=== PATIENT | female | born 1970 | race Caucasian/White ===

== ENCOUNTER 2023-04-03 10:59 | Emergency (ER) | payer SELFPAY ==
[2023-04-03 11:02] VITALS: BP 146/74; PULSE 60; RESP 18; TEMP 36.8; O2SAT 99; BMI 30.3
--- NOTE | 2023-04-03 11:15 | ED_ITS ---
HPI - Dental/Oral General Chief complaint: Dental/Oral Stated complaint: DENTAL PAIN Time Seen by Provider: 04/03/23 11:07 Source: patient Mode of arrival: walk-in Limitations: no limitations History of Present Illness HPI Narrative: 53-year-old female presents for toothache. She's complaining of pain to the left lower dentition which radiates to her left ear and it's moderate to severe. She tried to get into see a dentist but can't until June. The pain is throbbing and she's had it for almost a week. Related Data Home Medications Medication Instructions Recorded Confirmed amlodipine 10 mg tablet 10 mg PO DAILY 04/03/23 04/03/23 lisinopril 10 mg tablet 10 mg PO DAILY 04/03/23 04/03/23 Previous Rx's Medication Instructions Recorded acetaminophen 300 mg-codeine 30 mg 1 tab PO Q6H PRN pain #20 tabs 04/03/23 tablet ibuprofen 800 mg tablet 800 mg PO Q8H PRN pain #20 tabs 04/03/23 penicillin V potassium 250 mg 250 mg PO QID 10 days #40 tabs 04/03/23 tablet Allergies Allergy/AdvReac Type Severity Reaction Status Date / Time fluticasone [From Flonase] AdvReac Intermediate Verified 04/03/23 11:02 Review of Systems ROS Narrative A ten point review of systems is negative except as noted above. PFSH PFSH Social History Smoking status: Never smoker Exam Narrative Exam Narrative: Nurses note and vital signs reviewed and patient is not hypoxic. General: The patient appears well and in no apparent distress. Patient is resting comfortably on cart. Skin: Warm, dry, no pallor noted. There is no rash noted. Head: Normocephalic, atraumatic Eye: Normal conjunctiva, no drainage Ears, Nose, Mouth, and Throat: oral mucosa is moist. Nares patent. Mouth without vesicles. dental caries noted in the left mandibular 2nd molar. No bleeding or pus present. No facial swelling or erythema and no swelling to the floor of her mouth. Cardiovascular: Regular Rate and Rhythm Respiratory: Patient is in no distress, no accessory muscle use, lungs are clear to auscultation, no wheezing, rales or rhonchi Back: non-tender GI: soft and nontender Musculoskeletal: The patient has no evidence of calf tenderness, no pitting sheyla a, symmetrical pulses noted bilaterally Neurological: A&O, normal speech Psychiatric: Cooperative Constitutional Vital Signs, click to edit/add: Last Vital Signs Temp 98.2 F 04/03/23 11:02 Pulse 60 04/03/23 11:02 Resp 18 04/03/23 11:02 BP 146/74 H 04/03/23 11:02 Pulse Ox 99 04/03/23 11:02 O2 Del Method Room Air 04/03/23 11:02 Course Vital Signs Vital signs: Vital Signs Temperature 98.2 F 04/03/23 11:02 Pulse Rate 60 04/03/23 11:02 Respiratory Rate 18 04/03/23 11:02 Blood Pressure 146/74 H 04/03/23 11:02 Pulse Oximetry 99 04/03/23 11:02 Oxygen Delivery Method Room Air 04/03/23 11:02 Temperature 98.2 F 04/03/23 11:02 Pulse Rate 60 04/03/23 11:02 Respiratory Rate 18 04/03/23 11:02 Blood Pressure 146/74 H 04/03/23 11:02 Pulse Oximetry 99 04/03/23 11:02 Oxygen Delivery Method Room Air 04/03/23 11:02 Discharge Plan Discharge Chief Complaint: Dental/Oral Clinical Impression: Dental caries, Toothache Time of Disposition Decision: 11:12 Condition: Good Mode of Transportation: Private Vehicle Prescriptions / Home Meds: New penicillin V potassium 250 mg tablet 250 mg PO QID 10 Days Qty: 40 0RF ibuprofen 800 mg tablet 800 mg PO Q8H PRN (Reason: pain) Qty: 20 0RF acetaminophen-codeine 300-30 mg tablet 1 tab PO Q6H PRN (Reason: pain) Qty: 20 0RF No Action lisinopril 10 mg tablet 10 mg PO DAILY amlodipine 10 mg tablet 10 mg PO DAILY Instructions: Toothache (ED) Additional Instructions: follow up with dentistry Stand Alone Forms: Portal Instructions
== END 2023-04-03 11:19 | disposition home or self-care (01) ==
PROVIDERS: Emergency Provider Emergency Medicine
DX: K02.9 Dental caries, unspecified (principal); K08.89 Other specified disorders of teeth and supporting structures; Z79.899 Other long term (current) drug therapy
CPT/HCPCS: 99283

== ENCOUNTER 2024-07-28 18:17 | Emergency (ER) | payer SELFPAY ==
[2024-07-28 18:20] VITALS: BP 164/81; PULSE 80; TEMP 36.7; O2SAT 97; BMI 30.4
--- NOTE | 2024-07-28 18:28 | ED_ITS ---
HPI - Dental/Oral General Chief complaint: Dental/Oral Stated complaint: toothache Time Seen by Provider: 07/28/24 18:19 Source: patient Mode of arrival: walk-in History of Present Illness HPI Narrative: Patient is a 54-year-old female who presents to the emergency department for a 1 month history of pain in the teeth. She states she is having more pain when she eats so she came to the ER today. She does not have a dentist. She has not noticed any significant facial swelling, she states the tooth in the left mandible will occasionally swell along the gumline but there is no significant swelling today. No drainage. She does not take blood thinners, no medications taken prior to arrival. Related Data Home Medications ?Medication ?Instructions ?Recorded ?Confirmed amlodipine 10 mg tablet 10 mg PO DAILY 04/03/23 07/28/24 Previous Rx's ?Medication ?Instructions ?Recorded ketorolac 10 mg tablet 10 mg PO TID PRN pain #10 tabs 07/28/24 penicillin V potassium 500 mg 500 mg PO Q8H 10 days #30 tabs 07/28/24 tablet Allergies Allergy/AdvReac Type Severity Reaction Status Date / Time fluticasone (From Flonase) AdvReac Intermediate Verified 04/03/23 11:02 Review of Systems ROS Constitutional Denies: fever or chills Ears, nose, mouth, and throat Denies: throat pain or nasal congestion Cardiovascular Denies: chest pain Respiratory Denies: shortness of breath Gastrointestinal Denies: nausea or vomiting Integumentary/Breast Denies: rash Neurological Denies: headache Hematologic/Lymphatic Denies: easy bruising or easy bleeding PFSH PFSH Social History Smoking status: Never smoker Little interest or pleasure in doing things: not at all Feeling down, depressed, or hopeless: not at all Exam Narrative Exam Narrative: Gen.: Awake, alert, in no distress Head: Normocephalic, atraumatic ENT: Moist mucous membranes, dental caries to tooth #13 and tooth #20 with root exposure. No visible abscess. No trismus or drooling. Clear speech. Airway widely open and patent. No redness or swelling under the tongue Respiratory: No respiratory distress Extremities: Moves extremities equally Psych: Normal mood and affect Neuro: No focal neuro deficit Skin: Warm, dry, intact Constitutional Vital Signs, click to edit/add: Last Vital Signs Temp 98.1 F 07/28/24 18:20 Pulse 80 07/28/24 18:20 Resp 16 07/28/24 18:20 BP 164/81 H 07/28/24 18:20 Pulse Ox 97 07/28/24 18:20 O2 Del Method Room Air 07/28/24 18:20 Course Vital Signs Vital signs: Vital Signs Temperature 98.1 F 07/28/24 18:20 Pulse Rate 80 07/28/24 18:20 Respiratory Rate 16 07/28/24 18:20 Blood Pressure 164/81 H 07/28/24 18:20 Pulse Oximetry 97 07/28/24 18:20 Oxygen Delivery Method Room Air 07/28/24 18:20 Temperature 98.1 F 07/28/24 18:20 Pulse Rate 80 07/28/24 18:20 Respiratory Rate 16 07/28/24 18:20 Blood Pressure 164/81 H 07/28/24 18:20 Pulse Oximetry 97 07/28/24 18:20 Oxygen Delivery Method Room Air 07/28/24 18:20 MDM - Dental/Oral MDM Narrative Medical decision making narrative: Exam is consistent with dental caries, possible secondary infection although at this time there is no evidence of dental abscess. Patient started on clindamycin, Toradol, topical analgesia. She was provided with references for dentist clinics to follow-up with. Return to the ER if symptoms change or worsen SUPERVISED APC VISIT, PHYSICIAN ATTESTATION: Based on the medical record the care appears appropriate. ? Medical Records Attestation: I reviewed the patient's medical records. Discharge Plan Discharge Chief Complaint: Dental/Oral Clinical Impression: Dental caries, Toothache Patient Disposition: Home, Self-Care Time of Disposition Decision: 18:26 Condition: Good Mode of Transportation: Private Vehicle Prescriptions / Home Meds: New ketorolac 10 mg tablet 10 mg PO TID PRN (Reason: pain) Qty: 10 0RF penicillin V potassium 500 mg tablet 500 mg PO Q8H 10 Days Qty: 30 0RF No Action amlodipine 10 mg tablet 10 mg PO DAILY Print Language: Hungarian Instructions: Toothache (ED) Additional Instructions: Follow up with dental Referrals: Physician,Non-Staff, [Physician] - 1 week Discharge Date/Time: 07/28/24 18:56
--- OUTSIDE RECORDS SUMMARY | 2024-07-28 18:34 | XMS_ITS | CCD ---
Author Organization [facility] Care Team Providers Care Faculty Research Physician Name Role Phone AdrianLuis E rodriguezie Unavailable Cheri Brandon Unavailable PERRY ALEMAN Primary Care Unavailable DANISH ROOT Attending Unavailable DANISH ROOT Attending Unavailable DANISH ROOT Referring Unavailable PERRY ALEMAN Primary Care Unavailable NIRAV OLIVA Referring Unavailable PERRY ALEMAN Primary Care Unavailable NIRAV OLIVA Referring Unavailable PERRY ALEMAN Primary Care Unavailable NONE, XXXX Primary Care Physician Unavailab le NO FAMILY, PHYSICIAN Primary Care Provider Unava ilable Nirav Oliva PA-C Attending Provider NO FAMILY, PHYSICIAN Primary Care Unavailable Nirav Oliva Admitting Unavailable Nirav Oliva Attending Unavailable Perry Aleman MD Primary Care Provider [phone] Allergies Allergy Classification Reported Allergen(s) Allergy Type Date of Onset Reaction(s) Facility (2 sources) fluticasone Drug Allergy vomiting [facility] Other (5 sources) fluticasone; Translations: [FLUTICASONE PROPIONATE] Drug Allergy 1 Shortness Of Breath, Hives, GI Disturbance, Vomiting [facility] (1 source) fluticasone Drug Allergy 4 [facility] Repository Medications Current Medications Medication Drug Class(es) Dates Sig (Normalized) Sig (Original) [id number] 200 actuat albuterol 0.09 mg/actuat metered dose inhaler (7 sources) beta2-Adrenergic Agonist Start: 06-29-2023 take 2 puff(s) by mouth every six hours as needed for wheezing VENTOLIN HFA 90 mcg/actuation inhaler Indications: Short of breath on exertion INHALE 2 PUFFS BY MOUTH EVERY 6 HOURS NEEDED FOR WHEEZING 18 g 06/29/2023 Active Start: 10-28-2022 End: 06-29-2023 take 2 puff(s) by inhalation every six hours as needed for wheezing albuterol (PROVENTIL HFA;VENTOLIN HFA) 90 mcg/actuation inhaler Indications: Short of breath on exertion Inhale 2 puffs every 6 (six) hours as needed for wheezing. 18 g 06/29/2023 Active amLODIPine 10 mg oral tablet (8 sources) Dihydropyridine Calcium Channel Cj Start: 10-04-2023 End: 07-15-2024 take 1 tablet by mouth in the morning amLODIPine (NORVASC) 10 mg tablet Indications: Essential hypertension TAKE 1 TABLET BY MOUTH IN THE MORNING 90 tablet 07/15/2024 Active Start: 10-20-2022 End: 09-30-2023 take 1 tablet by mouth in the morning amLODIPine (NORVASC) 10 mg tablet Indications: Essential hypertension TAKE 1 TABLET BY MOUTH IN THE MORNING 90 tablet 2 10/20/2022 09/30/2023 Discontinued (Reorder) Norvasc Active amoxicillin 875 mg oral tablet (1 source) Penicillin-class Antibacterial Start: 03-13-2021 take 1 tablet by mouth every twelve hours Amoxicillin 875 MG 1 tablet Orally every 12 hrs for 7 days Feb, Active ibuprofen 800 mg oral tablet (4 sources) Nonsteroidal Anti-inflammatory Drug Start: 02-26-2023 take 1 tablet by mouth once ibuprofen (MOTRIN) 800 mg tablet Indications: Low back pain with sciatica, sciatica laterality unspecified, unspecified back pain laterality, unspecified chronicity Take 1 tablet (800 mg total) by mouth every 12 (twelve) hours. 60 tablet 02/26/2023 Active lisinopril 10 mg oral tablet (6 sources) Angiotensin Converting Enzyme Inhibitor Start: 12-24-2022 take 1 tablet by mouth in the morning lisinopriL (PRINIVIL,ZESTRIL ) 10 mg tablet Indications: Essential hypertension TAKE 1 TABLET BY MOUTH IN THE MORNING . NEEDS LABS DRAWN FOR FURTHER REFILLS. 90 tablet 12/24/2022 Active take 1 tablet by renetta th every twenty-four hours Lisinopril 10 MG 1 tablet Orally Once a day Active Lisinopril Activ e methylPREDNISolone 4 mg oral tablet (1 source) Corticosteroid Start: 10-16-2022 methylPREDNISolone 4 MG as directed Orally for daily dose take half with breakfast, half with dinner for 6 days Oct, Active naproxen sodium 550 mg oral tablet (1 source) Nonsteroidal Anti-inflammatory Drug Start: 03-13-2021 take 1 tablet by mouth every twelve hours at mealtime as needed Naproxen Sodium 550 MG 1 tablet with food or milk as needed Orally every 12 hrs for 7 days Feb, Active Problems Active Problems Problem Classification Problem Date Documented Da te Episodic/Chronic Asthma (8 sources) Asthma without status asthmaticus; Translations: [Unspecified asthma, uncomplicated] Onset: 1 12-16-2021 Chronic Cardiac dysrhythmias (4 sources) Paroxysmal atrial fibrillation; Translations: [Paroxysmal atrial fibrillation] Onset: 2 02-24-2022 Chronic Disorders of lipid metabolism (4 sources) Hyperlipidemia; Translations: [Hyperlipidemia, unspecified] 02-01-2017 Chronic Esophageal disorders (4 sources) Laryngopharyngeal reflux; Translations: [Gastro-esophageal reflux disease without esophagitis] Onset: 2 12-16-2021 Chronic Essential hypertension (10 sources) Essential hypertension; Translations: [Essential (primary) hypertension] Onset: 6 Resolved: 1 09-30-2023 Chronic Headache; including migraine (4 sources) Chronic intractable migraine without aura; Translations: [Chronic migraine without aura, intractable, without status migrainosus] Onset: 1 11-10-2016 Chronic Other connective tissue disease (1 source) Enthesopathy, unspecified Episodic Other connective tissue disease (1 source) Pain in right hand; Translations: [Pain in right hand] Onset: 4 Episodic Other connective tissue disease (1 source) Hand pain Onset: 4 Episodic Other gastrointestinal disorders (4 sources) Chronic idiopathic constipation; Translations: [Chronic idiopathic constipation] Onset: 7 11-10-2016 Chronic Other injuries and conditions due to external causes (1 source) Other injury of unspecified body region, initial encounter; Translations: [Other injury of unspecified body region, initial encounter] Onset: 4 Episodic Other nutritional; endocrine; and metabolic disorders (4 sources) Obesity; Translations: [Obesity, unspecified] Onset: 1 12-16-2021 Chronic Other upper respiratory disease (4 sources) Chronic rhinitis; Translations: [Chronic rhinitis] Onset: 2 12-16-2021 Chronic Other upper respiratory disease (4 sources) Allergic rhinitis due to pollen; Translations: [Allergic rhinitis due to pollen] Onset: 2 12-16-2021 Chronic Residual codes; unclassified (1 source) Pain, unspecified; Translations: [Pain, unspecified] Onset: 4 Episodic Sprains and strains (3 sources) Sprain of unspecified part of right wrist and hand, initial encounter; Translations: [Unspecified sprain of right thumb, initial encounter] Onset: 4 Episodic Superficial injury; contusion (1 source) Contusion of right hand, initial encounter; Translations: [Contusion of right hand, initial encounter] Onset: 4 Episodic Unclassified (1 source) Hand Injury Onset: 4 Past or Other Problems Problem Classification Problem Date Documented Da te Episodic/Chronic Cardiac dysrhythmias (4 sources) Palpitations; Translations: [Palpitations] Onset: 10-13-2017 10-13-2017 Episodic Disorders of teeth and jaw (1 source) Periapical abscess without sinus; Translations: [Tooth infection K04.7] Onset: 03-13-2021 Resolved: 03-13-2021 Episodic Mood disorders (4 sources) Mood disorders Onset: 12-15-2021 12-15-2021 Nonspecific chest pain (4 sources) Chest pain; Translations: [Chest pain, unspecified] Onset: 03-24-2016 11-10-2016 Episodic Other circulatory disease (1 source) Elevated blood-pressure reading, without diagnosis of hypertension; Translations: [Elevated blood pressure reading R03.0] Onset: 03-13-2021 Resolved: 03-13-2021 Episodic Other connective tissue disease (4 sources) Pain in lower limb; Translations: [Pain in right leg] Onset: 10-17-2019 10-17-2019 Episodic Other lower respiratory disease (6 sources) Dyspnea on exertion; Translations: [Shortness of breath] Onset: 10-17-2019 10-17-2019 Episodic Spondylosis; intervertebral disc disorders; other back problems (5 sources) Pain in thoracic spine; Translations: [Low back pain] Onset: 12-26-2010 Resolved: 03-13-2021 Episodic Unclassified (4 sources) Onset: 02-19-2020 02-19-2020 Results Test Name Value Interpretation Reference Range Facility Magnetic resonance imaging r eportOrdered By: Herbie Andrade on 03-31-2024 Study report [facility] Main [address] [address] MRI Report Signed Patient: Samy Woodruff MR#: [id number] : 1970 Acct:[id number] Age/Sex: 54 / F ADM Date: 4 Loc: MR Room: Type: [facility] Attending Dr: Nirav Oliva PA-C Copies to: NON STAFF Nirav Oliva PA-C~ Ordering Provider: NON STAFF Date of Service: 03/31/24 MR/MR hand RT wo con: 563.91XA S63.601A S60.221A M79.641 ([id number]) XR/XR pre/post mri xray: 563.91XA S63.601A S60.221A M79.641 MR hand RT wo con, XR pre/post mri xray 03/31/2024 11:14 AM SIGNS AND SYMPTOMS: Pain in right first metacarpal after injury, ^563.91XA S63.601A S60.221A M79.641 PROTOCOL: Multiplanar multisequence MR images of the right hand were obtained without IV contrast. Frontal and lateral radiographs of the right hand were obtained. COMPARISON: None. FINDINGS: Radiographs of the right hand: There is no evidence of fracture or dislocation. The joint spaces are preserved. No significant soft tissue swelling. MRI right hand: Alignment: Normal. Fluid: Carpus effusion: No joint effusion. Distal radioulnar joint effusion: Preserved. Intrinsic ligaments: Scapholunate: Intact. Lunotriquetral: Intact. Ulnar side: Triangular fibrocartilage: Normal. Lunate facet: Intact Hamate-lunate: Intact. Extensor compartment: I: Normal. II: Normal. III: Normal. IV: Normal. V: Normal. : Normal. Flexor compartment: Carpal tunnel: Median nerve: Normal. Flexor retinaculum: Intact. Flexor tendons: Intact. Guyon canal: Normal. Articular: Thumb carpometacarpal joint: There is edema surrounding the ulnar aspect of the first carpometacarpal joint. Findings suggest disruption of the intermetacarpalligament along the ulnar aspect of the base of the first metacarpal. There is accompanying edema on both sides of the joint space without obvious avulsion fracture. There is also increased signal intensity along the volar aspect in the expected location of the anterior oblique ligament suggesting disruption. Scaphotrapeziotrapezoidal joint: Intact. Pisiform-triquetral joint: Intact. Bones (other than subarticular marrow): Normal. Muscles: Normal. Vessels: Normal. MR/MR hand RT wo con IMPRESSION: There is edema surrounding the ulnar aspect of the first carpometacarpal joint. There is accompanying edema on both sides of the joint space without obvious avulsion fracture. Findings suggest disruption of the intermetacarpal ligament along the ulnar aspect of the base of the first metacarpal. There is also increased signal intensity along the volar aspect in the expected location of the anterior oblique ligament suggesting disruption. Impression dictated by: Herbie Andrade M.D.03/31/2024 4:10 PM Dictation Location: [place] [address] Transcribed By: [facility] 03/31/24 1610 Dictated By: Herbie Andrade II, MD 03/31/24 1551 Signed By: 03/31/24 1610 [facility] Work Phone: XR pre/post mri xrayon 03-31 XR pre/post mri xray [facility] [address] MRI Report Signed Patient: Samy Woodruff MR#: [id number] 19 : 1970 Acct:[id number] Age/Sex: 54 / F ADM Date: 03/31/24 Loc: Room: Type: [facility] Attending Dr: Nirav Oliva PA-C Copies to: NON STAFF Nirav Oliva PA-C Ordering Provider: NON STAFF Date of Service: 03/31/24 MR/MR hand RT wo con: 563.91XA S63.601A S60.221A M79.641 ([id number]) XR/XR pre/post mri xray: 563.91XA S63.601A S60.221A M79.641 MR hand RT wo con, XR pre/post mri xray 03/31/2024 11:14 AM SIGNS AND SYMPTOMS: Pain in right first metacarpal after injury, 563.91XA S63.601A S60.221A M79.641 PROTOCOL: Multiplanar multisequence MR images of the right hand were obtained without IV contrast. Frontal and lateral radiographs of the right hand were obtained. COMPARISON: None. FINDINGS: Radiographs of the right hand: There is no evidence of fracture or dislocation. The joint spaces are preserved. No significant soft tissue swelling. MRI right hand: Alignment: Normal. Fluid: Carpus effusion: No joint effusion. Distal radioulnar joint effusion: Preserved. Intrinsic ligaments: Scapholunate: Intact. Lunotriquetral: Intact. Ulnar side: Triangular fibrocartilage: Normal. Lunate facet: Intact Hamate-lunate: Intact. Extensor compartment: I: Normal. II: Normal. III: Normal. IV: Normal. V: Normal. : Normal. Flexor compartment: Carpal tunnel: Median nerve: Normal. Flexor retinaculum: Intact. Flexor tendons: Intact. Guyon canal: Normal. Articular: Thumb carpometacarpal joint: There is edema surrounding the ulnar aspect of the first carpometacarpal joint. Findings suggest disruption of the intermetacarpal ligament along the ulnar aspect of the base of the first metacarpal. There is accompanying edema on both sides of the joint space without obvious avulsion fracture. There is also increased signal intensity along the volar aspect in the expected location of the anterior oblique ligament suggesting disruption. Scaphotrapeziotrapezoidal joint: Intact. Pisiform-triquetral joint: Intact. Bones (other than subarticular marrow): Normal. Muscles: Normal. Vessels: Normal. MR/MR hand RT wo con IMPRESSION: There is edema surrounding the ulnar aspect of the first carpometacarpal joint. There is accompanying edema on both sides of the joint space without obvious avulsion fracture. Findings suggest disruption of the intermetacarpal ligament along the ulnar aspect of the base of the first metacarpal. There is also increased signal intensity along the volar aspect in the expected location of the anterior oblique ligament suggesting disruption. Impression dictated by: Herbie Andrade M.D.03/31/2024 4:10 PM Dictation Location: [place] [address] Transcribed By: [facility] 03/31/24 1610 Dictated By: Herbie Andrade II, MD 03/31/24 1551 Signed By: 03/31/24 1610 Normal [facility] XR HAND RT MIN 3 VWSon 02-01 XR HAND RT MIN 3 VWS XR HAND RT MIN 3 VWS CLINICAL INFORMATION: Sprain; Pain TECHNIQUE: Right Hand radiographs performed. Three images acquired. COMPARISON: No relevant prior studies available. FINDINGS: Joint space and bony alignment of the right hand is intact without evidence of acute fracture or dislocation. Carpal rows and wrist alignment is maintained. No radiopaque foreign body. IMPRESSION: * No acute abnormality. Finalized by Ladonna Tristan MD on 02/02/2024 9:42 AM Normal [facility] XR HAND RT MIN 3 VWSon 12-12 XR HAND RT MIN 3 VWS XR HAND RT MIN 3 VWS XR HAND RT MIN 3 VWS HISTORY: Thumb pain, trauma COMPARISON: None. FINDINGS: No acute fracture. Degenerative changes of the first CMC joint. Soft tissues grossly unremarkable. IMPRESSION: * No acute osseous abnormality. Approved by Resident Juan Marcano DO on 12/13/2023 4:45 AM Trev Muñoz MD have personally reviewed the image(s) and agree with and/or edited the report Finalized by Trev Mendez MD on 12/13/2023 4:49 AM Normal [facility] XR ankle RT min 3V*on 2020 XR ankle RT min 3V* [facility] [place] [address] [place], [place] [id number] XRay Report Signed Patient: Samy Woodruff MR#: [id number] : 1970 Acct:[id number] Age/Sex: 50 / F ADM Date: 11/18/20 Loc: XDUCLY Room: Type: [facility] Attending Dr: Kisha COSTA Ordering Provider: KISHA COOPER Date of Service: 11/18/20 XR/XR ankle RT min 3V*: RIGHT ANKLE PAIN Copies to: KISHA COOPER Right ankle 11/18/2020. CLINICAL DATA: Right ankle pain after twisting injury. FINDINGS: 3 views of the right ankle were obtained. No acute fracture or dislocation is identified. No other bony abnormality is seen. Mild lateral soft tissue swelling is noted. XR/XR ankle RT min 3V* IMPRESSION: No acute bony abnormality. Impression dictated by: Binh Anderson Jr., M.D.11/18/2020 3:57 PM Dictation Location: [place] [address] Transcribed By: [facility] 11/18/20 1557 Dictated By: Binh Anderson Jr, MD 11/18/20 1554 Signed By: 11/18/20 1557 [facility] Vital Signs Date Time Vital Sign Value Performing Clinician Facility 10-16-2022 15:25-0400 Body height 162.56 cm Cheri Brandon Other [facility] Other 10-16-2022 15:25-0400 Body mass index (BMI) [Ratio] 30.28 kg/m2 Cheri Brandon Other [facility] Other 10-16-2022 15:25-0400 Body temperature 98.9 [degF] Cheri Brandon Other [facility] Other 10-16-2022 15:25-0400 Body weight 80.02 kg Cheri Brandon Other [facility] Other 10-16-2022 15:25-0400 Diastolic blood pressure 70 mm[Hg] Cheri Brandon Other [facility] Other 10-16-2022 15:25-0400 Respiratory rate 16 /min Cheri Brandon Other [facility] Other 10-16-2022 15:25-0400 SaO2% (BldA) [Mass fraction] 97 % Cheri Brandon Other [facility] Other 10-16-2022 15:25-0400 Systolic blood pressure 134 mm[Hg] Cheri Brandon Other [facility] Other 03-13-2021 12:00-0400 Body height 162.56 cm Kisha Harkinsault Other [facility] Other 03-13-2021 12:00-0400 Body mass index (BMI) [Ratio] 30.38 kg/m2 Kisha Adrian Other [facility] Other 03-13-2021 12:00-0400 Body temperature 98 [degF] Kisha Adrian Other [facility] Other 03-13-2021 12:00-0400 Body weight 80.29 kg Kisha Adrian Other [facility] Other 03-13-2021 12:00-0400 Diastolic blood pressure 81 mm[Hg] Kisha Adrian Other [facility] Other 03-13-2021 12:00-0400 Respiratory rate 16 /min Kisha Adrian Other [facility] Other 03-13-2021 12:00-0400 SaO2% (BldA) [Mass fraction] 100 % Kisha Cooper Other [facility] Other 03-13-2021 12:00-0400 Systolic blood pressure 151 mm[Hg] Kisha Cooper Other [facility] Other Encounters Encounter Date Encounter Type Care Provider Facility Start: 07-14-2024 End: 07-15-2024 Refill Perry Aleman MD Work Phone: [facility] Comment on above: Essential hypertensi on Start: 03-31-2024 End: 03-31-2024 Patient encounter procedure PHYSICIAN NO [facility] [place] Work Phone: Start: 03-31-2024 End: 03-31-2024 ambulatory PHYSICIAN [facility] Work Phone: Start: 02-24-2024 End: 03-04-2024 Pre-admission assessment NIRAV OLIVA [facility] Start: 02-02-2024 End: 02-06-2024 ambulatory NIRAV OLIVA [facility] Start: 01-11-2024 ambulatory NIRAV OLIVA [facility] Start: 12-13-2023 End: 12-14-2023 Emergency department patient visit DANISH SALAZARSTROM [facility] Start: 09-30-2023 End: 10-04-2023 Refill Hardik Flowers CMA [facility] Comment on above: Essential hypertensi on Start: 06-29-2023 Refill Yojana Mitchell [employer] Work Phone: [facility] Comment on above: Short of breath on e xertion Start: 06-29-2023 Refill Jenni Nicole CNA [facility] Comment on above: Short of breath on e xertion Start: 10-16-2022 End: 10-16-2022 ambulatory Cheri Brandon Other [facility] Other Start: 10-16-2022 Office outpatient vi sit 15 minutes Cheri Brandon [facility] Start: 03-13-2021 Office outpatient vi sit 15 minutes Kisha Cooper [facility] Procedures Date Procedure Procedure Detail Performing Clinician Start: 03-31-2024 MRI of right hand PHYSI DREW NO FAMILY Start: 03-31-2024 XR pre/post mri xray PH YSICIAN NO FAMILY Start: 12-15-2021 Adult depression scr eening assessment Jenni Nicole WEB DEVELOPMENT DIRECTOR Start: 09-10-2017 Mammography Jenni pfeiffer WEB DEVELOPMENT DIRECTOR Start: 04-06-2017 Microscopic observat ion [Identifier] in Cervix by Cyto stain Jenni Nicole WEB DEVELOPMENT DIRECTOR Plan of Treatment Date Care Activity Detail Author Start: 07-01-2032 DTaP,Tdap and Td Vaccines (2 - Td or Tdap) DTaP,Tdap and Td Vaccines (2 - Td or Tdap) [facility] Start: 12-12-2024 Adult BMI Screening Adult BMI Screening [facility] Start: 12-12-2024 Tobacco Screening Tobacco Screening [facility] Start: 01-16-2024 Influenza vaccination Influenza Vaccine [facility] Start: 12-12-2023 Adult BMI Screening Adult BMI Screening [facility] Start: 12-12-2023 Tobacco Screening Tobacco Screening [facility] Start: 01-15-2023 Influenza vaccination Influenza Vaccine [facility] Start: 12-15-2022 Depression Screening Depression Screening [facility] Start: 04-06-2020 Screening for malignant neoplasm of cervix Pap Smear [facility] Start: 2020 Administration of varicella zoster vaccine Zoster (Shingles) Vaccine (1 of 2) [facility] Start: 09-10-2018 Screening for malignant neoplasm of breast Mammogram [facility] Start: 1988 Adult BMI Follow Up Plan Adult BMI Follow Up Plan [facility] Immunizations Immunization Date Immunization Notes Care Provider Irma barton NEGATED: Highlighted row has not occurred!04-18-2020 influenza, injectable, quadrivalent, preservative free Jennimarguerite Nicole [facility] Comment on above: Deferred: Patient Re fused NEGATED: Highlighted row has not occurred!04-06-2018 influenza, injectable, quadrivalent, preservative free Jenni Nicole [facility] Comment on above: Deferred: Patient Re fused Payers Date Payer Category Payer Self-pay 2024 Unknown [id number] 2023 Worker's Comp, Other (unspecified) [id number] 2023 Worker's Compensation [id number] 2022 Medicaid [id number] 1970 Unknown [id number] 1970 Unknown [id number] 1970 Unknown [id number] 1970 Unknown [id number] Medicaid [id number] 2. [id number] Unknown [id number] 2.1 [id number] Unknown [id number] Unknown [id number] Social History Date Type Detail Facility Start: 05-28-2020 End: 12-15-2021 Sex Assigned At [facility] Tobacco smoking status No Smokin g Status Entered [facility] Tobacco smoking stat [facility] Unknown if ever smoked [facility] Work Phone: Start: 12-20-2014 End: 04-01-2024 Sex Female (finding) [facility] Start: 1970 Sex Assigned At Female F [facility] Start: 10-28-2022 Tobacco smoking stat us NHIS Ex-smoker [facility] History of tobacco use Current smoker [facility] Start: 10-28-2022 Tobacco use and exposure Smoke less tobacco non-user [facility] Start: 12-11-2022 End: 12-13-2023 Alcoholic beverage intake Current drinker of alcohol (finding) [facility] Start: 05-28-2020 End: 12-15-2021 History of Social function [facility] Do you belong to any clubs or organizations such as episcopalian groups, unions, fraternal or athletic groups, or school groups? No [facility] Are you now , , , , never or living with a partner? [facility] How often to you hav e a drink containing alcohol? Monthly or less [facility] How many standard dr inks containing alcohol do you have on a typical day? 1 or 2 [facility] How often do you hav e 6 or more drinks on 1 occasion? Never [facility] How hard is it for y ou to pay for the very basics like food, housing, medical care, and heating Not very hard [facility] Adolescent depressio n screening assessment 0 [facility] Do you feel stress - tense, restless, nervous, or anxious, or unable to sleep at night because your mind is troubled all the time - these days [OSQ] Not at all [facility] Start: 12-15-2021 Education 12 [facility] Start: 12-16-2021 Alcohol Comment occ. [facility] Start: 1970 Sex assigned at Not on file P [facility] Clinical Notes 03-13-2021 to 09-30-2023 Telephone Encounter - Hardik Flowers CMA - 09/30/2023 10:49 AM EDTTelephone Encounter - Hardik Flowers [facility] - 09/30/2023 10:49 AM EDTTelephone Encounter - Jenni Nicole CNA - 06/29/2023 2:46 PM EST Note Date & Type Note Facility 09-30-2023 Miscellaneous Notes Formattin g of this note might be different from the original. Patient is also requesting a prescription for antibiotics for her tooth ache, she stated she still has not been able to find one in the area. Patient was advised providers don't normally call in prescriptions for antibiotics without an appointment. She stated understanding and wanted to ask anyway documented in this encounter [facility] 09-30-2023 Telephone encount er Note Patient is also requesting a prescription for antibiotics for her tooth ache, she stated she still has not been able to find one in the area. Patient was advised providers don't normally call in prescriptions for antibiotics without an appointment. She stated understanding and wanted to ask anyway [facility] 06-29-2023 Miscellaneous Notes Formattin g of this note might be different from the original. Samy called stating she is having SOB. Her current albuterol inhaler is out dated and needs a new one. documented in this encounter [facility] 06-29-2023 Telephone encount er Note Samy called stating she is having SOB. Her current albuterol inhaler is out dated and needs a new one. [facility] 10-16-2022 Evaluation note Encounter Date Diagnosis Assessment Notes Oct, Tendonitis (ICD-10 - M77.9) Discussed diagnosis with patient today in office. Offered baseline XR to check for degenerative changes, however, patient declines at this time. We will treat as tendinitis. We will send in Rx of Medrol Dosepak to use as directed. Encouraged RICE therapy, OTC Tylenol in addition for symptom relief. May use OTC lidocaine patches for pain as well. Advised patient to follow-up with PCP if symptoms do not improve with course of medication. Immediate evaluation in ER for signs/symptoms as discussed. Patient verbalizes understanding and is agreeable with treatment plan. [facility] 10-28-2021 Evaluation note* Encounter Date Diagnosis Assessment Notes Treatment Notes Treatment Clinical Notes Feb, Tooth infection (ICD-10 - K04.7) Take medications as directed.Highly encourage patient to contact dentist JARROD for further treatment of infection. Do not take OTC medications like ibuprofen with prescriptions Feb, Acute right-sided thoracic back pain (ICD-10 - M54.6) Take medications as directed. Use caution when operating machinery with muscle relaxer as it may cause drowsiness. Alternating heat and ice to area 3-4 times per day. Rest a lot Follow up with primary care if there is no symptom improvement within the next week, sooner if symptoms worsen or new symptoms occur. Feb, Elevated blood pressure reading (ICD-10 - R03.0) Elevated blood pressure reading with patient and recommend to check blood pressure and report to primary care provider. There are major complications of untreated high blood pressure so it is so important to follow up [facility] Evaluation + Plan note No data available for this section [facility] Evaluation noteNo assessment information available [facility] Work Phone: Evaluation note* Diagnosis Essential hypertension Unspecified essential hypertension [facility] Diagnosis Short of breath on exertion [facility] in [facility] Diagnosis Short of breath on exertion documented in this encounter [facility]* Diagnosis Essential hypertension Unspecified essential hypertension [facility] N[facility]ative - Reported* Type Description Date Medical History HTN Surgical History Throat Surgery Surgical History Carpal Tunnel Surgery Both hand s Surgical History Lower Back Surgery Surgical History Ectopic Surgical History tonsillectomy Hospitalization History see above [facility] Other History general Narrative - Reported* Type Description Date Medical History HTN Surgical History Throat Surgery Surgical History Carpal Tunnel Surgery Both hand s Surgical History Lower Back Surgery Surgical History Ectopic Surgical History tonsillectomy Surgical History REMOVAL OF OVARY AND FALLOPIAN TUBE Hospitalization History see above [facility] Hospital Discharge instructions No data available for this section [facility] InstructionsNot on filedocumented in this encounter [facility] this [facility] filedocumented in this [facility] No data available for this section [facility] Summary Purpose Family History Relationship Condition Age at Onset Recorded Date/T gabriel brother History of stroke Unknown father Diabetes mellitus Unknown Heart disease Unknown Unknown mother Unknown Malignant neoplasm Unknown sister Family history of mental disorder Unknown Advance Directives No Advanced Directives Records FoundNo Advanced Directives Records FoundNo Advanced Directives Records Found Chief Complaint and Reason for Visit Chief Complaint Admit Date [id number] [facility] 2023 11:05am Additional Source Comments INFORMATION SOURCE (unrecogn ized section and content) DATE CREATED AUTHOR 06/08/2021 [facility] DATE CREATED AUTHOR AUTHOR'S ORGANIZ ATION 02/07/2024 [facility] DATE CREATED AUTHOR AUTHOR'S ORGANIZ ATION 04/08/2024 [facility] REASON FOR VISIT (unrecogniz ed section and content) Reason Comments Med Refill Reason Onset Date Comments Med Refill 06/29/2023 Care Teams (unrecognized sec tion and content) Faculty Research Physician Relationship Specialty Start Date End Date Perry Aleman MD 5 [facility] [place] [address] PCP - General Internal Medicine 11/20/22 Team Status: Active Member Role Status Dates PHYSICIAN NO FAMILY Primary Care Provider Active Team Status: Inactive Member Role Status Dates PHYSICIAN NO FAMILY Primary Care Provider Active Start: March 31, 2024 End: March 31, 2024 Nirav Oliva PA-C Attending Provider Active Start: March 31, 2024 End: March 31, 2024 Goals (unrecognized section and content) Goals may be documented in a n alternate section FOR RECORDS PERTAINING TO PATIENTS WHO ARE OR HAVE BEEN ENROLLED IN A CHEMICAL DEPENDENCY/SUBSTANCEABUSE PROGRAM, SOME INFORMATION MAY BE OMITTED. This clinical summary was aggregated from multiple sources. Caution should be exercised in using it in the provision of clinical care. This summary normalizes information from multiple sources, and as a consequence, information in this document may materially change the coding, format and clinical context of patient data. In addition, data may be omitted in some cases. CLINICAL DECISIONS SHOULD BE BASED ON THE PRIMARY CLINICAL RECORDS. [facility] [employer] [facility]. provides no warranty or guarantee of the accuracy or completeness of information in this document.
[2024-07-28] MEDS: BENZOCAINE 30 ML, lidocaine HCL 15 ML MM (18:53)
== END 2024-07-28 18:56 | disposition home or self-care (01) ==
LOC: ER 18:32
PROVIDERS: Emergency Provider Emergency Medicine; PCP Student in an Organized Health Care Education/Training Program
DX: K02.9 Dental caries, unspecified (principal); K08.89 Other specified disorders of teeth and supporting structures
CPT/HCPCS: 99284